=== PATIENT | male | born 1965 | race Caucasian/White ===

== ENCOUNTER 2019-05-30 22:32 | Observation (INO) | payer OTHER ==
[~2019-05-30] VITALS: Ht 188 cm; Wt 102.7 kg
[2019-05-30] MEDS ORDERED: EFFEXOR100 MG PO (22:47)
[2019-05-30] MEDS ORDERED: ABILIFY10 MG PO ×2 (22:47→22:49)
[2019-05-30] MEDS ORDERED: LAMICTAL200 M1 PO (22:48)
[2019-05-30 23:05] VITALS: BP 101/76
[2019-05-30 23:09] LABS: BASOPHILS 0.2 % (0-2); EOSINOPHILS 2.5 % (0-7); HEMATOCRIT 41.3 % (42.0-54.0); HEMOGLOBIN 13.8 g/dL (13.5-17.5); IMMATURE GRANULOCYTES 0.4 % (0-5); LYMPHOCYTES 28.2 % (15-50); MCH 30.8 pg (26.0-34.0); MCHC 33.4 g/dL (31.0-37.0); MCV 92.2 fL (80.0-100.0); MEAN PLATELET VOLUME 9.6 fL (7.4-10.4); MONOCYTES 8.3 % (2-11); NEUTROPHILS 60.4 % (40-80); PLATELET COUNT 293 10x3/uL (130-400); RBC 4.48 10x6/uL (4.20-6.10); RDW 13.2 % (11.5-14.5)
[2019-05-30 23:23] LABS: INR 1.13 (0.85-1.17)
[2019-05-30 23:27] LABS: ALBUMIN 3.3 g/dL (3.4-5.0); ALKALINE PHOSPHATASE 83 U/L (46-116); ALT (SGPT) 27 U/L (10-68); BILIRUBIN - TOTAL 0.41 mg/dL (0.2-1.3); CALC OSMOLALITY 281 mosm/kg (275-300); CALCIUM 8.4 mg/dL (8.5-10.1); CARBON DIOXIDE 25.7 mmol/L (21.0-32.0); CHLORIDE - SERUM 102 mmol/L (98-107); GLUCOSE 257 mg/dL (74-106); POTASSIUM - SERUM 3.9 mmol/L (3.5-5.1); PROTEIN - SERUM 6.8 g/dL (6.4-8.2); SODIUM 136 mmol/L (136-145); UREA NITROGEN 14 mg/dL (7-18); eGFR NON AFRICAN AMERICAN 83 mL/min (90-120)
--- NOTE | 2019-05-30 23:32 | NUR ---
DR LÓPEZ NOTIFIED AND REVIEWED PT'S BEHAVIOR AND ASSESSMENT RESULTS. PT IS A LOW RISK PER DR LÓPEZ. DR LÓPEZ STATED TO GIVE RESOURCES TO PT AT TIME OF DISCHARGE. NO FURTHER ORDERS AT THIS TIME. RESOURCES REVIEWED WITH PT AND HE VERBALIZED UNDERSTANDING.
[2019-05-30 23:38] LABS: CKMB 0.6 U/L (0.0-3.6); CREATINE KINASE 75 UL (21-232); MAGNESIUM - SERUM 1.8 mg/dL (1.8-2.4)
[2019-05-30 23:39] LABS: TROPONIN-I < 0.017 ng/mL (0.000-0.060)
[2019-05-31] MEDS ORDERED: TYLENOL W/CODEI1 TAB PO (02:00)
[2019-05-31] MEDS ORDERED: KEFLEX500 MG PO (02:01)
[2019-05-31 03:35] VITALS: BMI 29.0
--- NOTE | 2019-05-31 07:42 | NUR ---
ASSESSMENT COMPLETED. TELEMERTY SHOWS SR WITH 1ST DEGREE BLOCK. DENIES ANY NEEDS AT PRESENT TIME. RIGHT AC SL. UP AB [place]. WILL MONITOR
[2019-05-31 09:56] VITALS: Ht 188 cm; Wt 102.7 kg
[2019-05-31] MEDS ORDERED: PROTONIX40 MG PO (11:20)
[2019-05-31] MEDS ORDERED: CARAFATE1 G PO (11:20)
[2019-05-31] MEDS ORDERED: LEVAQUIN750 MG PO (11:20)
[2019-05-31 13:45] VITALS: BP 126/84
--- NOTE | 2019-05-31 14:15 | NUR ---
PT DISCHARGED. IV DC D AND INFORMATION GIVEN TO PT. TO PRIVATE CAR PER WHEELCHAIR
--- NOTE | 2019-06-03 11:24 | ST ---
PATIENT:RISHABH RUSSO MEDICAL RECORD: [id number] SEX: M LOCATION:[address]. [address] ORDER #: ADMISSION DATE: 05/31/19 AGE OF PATIENT: 53 REFERRING PHYSICIAN: INTERPRETING PHYSICIAN: EVITA AMAYA MD DATE OF SERVICE: 05/31/2019 PROCEDURE: Exercise stress test. INDICATION: Chest pain. He was exercised on standard Drake protocol for 7 minutes 30 seconds achieving greater than 75% max target heart rate response with no EKG changes, no dysrhythmias, no anginal symptomatology. OVERALL IMPRESSION: Negative for inducible ischemia at adequate cardiac workload. TRANSINT:[id number] Voice Confirmation ID: [id number] DOCUMENT ID: [id number] EVITA AMAYA MD at 1124 CC: [id number] DICTATION DATE: 05/31/19 1030 VOLCANOLOGY TEACHER: 06/01/19 0112 DIS IN 05/31/19 [id number] [place] [address]
== END 2019-05-31 14:17 | disposition home or self-care (01) ==
LOC: D.ER 22:32 → OBSVTIME 05-31 01:05 → D.M2 05-31 01:05
PROVIDERS: Family Medicine; ADMIT Internal Medicine Nephrology; ATTEND Internal Medicine Nephrology
DX: R07.89 Other chest pain (principal); E11.40 Type 2 diabetes mellitus with diabetic neuropathy, unspecified; E11.51 Type 2 diabetes mellitus with diabetic peripheral angiopathy without gangrene; E78.5 Hyperlipidemia, unspecified; F32.9 Major depressive disorder, single episode, unspecified; F41.9 Anxiety disorder, unspecified; Z72.89 Other problems related to lifestyle